=== PATIENT | male | born 1965 | race Caucasian/White ===

== ENCOUNTER 2018-11-06 10:47 | Emergency (ER) | payer OTHER ==
--- NOTE | 2018-11-06 11:05 | EDPHY ---
General Time Seen by Provider: 11/06/18 11:05 Narrative: CLINICAL IMPRESSION: Influenza A ASSESSMENT/PLAN: Patient is a 53-year-old male with a significant medical history of recurrent sinusitis who presents to the emergency department with complaints of myalgias, worsening cough, shortness of breath, decreased appetite and nausea. Patient is febrile on arrival at 38.5, he is tired appearing however not toxic-appearing. His vital signs were reviewed and no findings to suggest sepsis or serious bacterial illness. Laboratory studies were obtained including CBC, CMP and influenza with no evidence of leukocytosis, metabolic abnormality or acute kidney injury. Influenza A positive. CXR with central bronchial thickening, no evidence of focal infiltrate. History and physical examination is most consistent with influenza a. His symptoms have been ongoing for greater than 48 hr, I did not feel it of benefit for him to initiate Tamiflu. There is no evidence of significant sepsis, significant sinusitis, meningitis, pneumonia or serious bacterial illness. The patient was given IV fluids, Tylenol, Toradol, albuterol nebulizer and prednisone with significant improvement of his symptoms. The patient will continue to be treated symptomatically and is instructed to followup with PCP for reevaluation within the next 2-3 days; he will additionally continue Medrol Dosepak and albuterol as needed for his cough. On re-examination and prior to discharge this patient is stable and well-appearing, his abdomen is soft and non -tender, there is no petechial rash and his neck supple. His lungs were clear, his oxygen saturation was 96% on room air without evidence of hypoxia or respiratory distress. The patient is well established with PCP, we discussed the importance of close follow-up. Strict return precautions discussed-he will return for significantly worsening symptoms, high fevers, neck stiffness, difficulty swallowing, chest pain, shortness of breath, signs of dehydration or for any other concerning symptom. The patient verbalizes understanding and he is in agreement with this plan. DIFFERENTIAL DX: Adult fever including but not limited to viral syndromes including influenza, meningitis, urinary tract infection, pneumonia and sepsis. ED COURSE: 1140: Chest x-ray findings suggestive of central bronchitis, no evidence of focal consolidation. 1208: ECG reviewed by myself revealed normal sinus rhythm with a rate of 77. No evidence of acute ischemia. 1300: Case discussed with Dr. Jack. 1325: On repeat examination the patient is well-appearing, he states he is feeling so much better. His vital signs remain stable however he still has a temperature of 38.2 degrees, will give Toradol and re-evaluate. CHIEF COMPLAINT: Myalgias, cough, shortness of breath, decreased appetite and nausea HPI: Patient is a 53-year-old male with a history of intermittent sinusitis who presents to the emergency department with complaints of congestion, severe cough , myalgias, shortness of breath, decreased appetite and nausea. Patient reports 1 month prior he was experiencing symptoms of congestion, sinus tenderness and cough similar to episodes of sinusitis that he has had in the past. He was seen and evaluated by his primary care provider Dr. Elena, was placed on Z-Nikhil, cough suppressant and intranasal sinus medication with improvement however never complete resolution of his symptoms. Patient traveled for work this week to [place], on the 2nd day of his trip he is symptoms significantly worsening where his cough became much more severe, he describes a whistling sound when he breathes as well as chills, sweats, shortness of breath, decreased appetite and nausea. Patient returned last evening from his travels, woke up today feeling even worse. Patient denies any earache or sore throat, he has had constant runny nose and congestion, denies any significant sinus tenderness. He does develop headaches when his coughing is most severe, denies any headache today also denies any neck stiffness. He has pain in his central chest only when he coughs, denies any chest pain at rest. He feels that he is not able to take a deep breath, when he tries to take a deep breath it causes him to cough uncontrollably. He has had nausea, denies any vomiting or abdominal pain. He denies any urinary symptoms to include dysuria, hematuria or frequency. Bowel movements have been normal and regular. PMH: Intermittent sinusitis Pertinent Past Surgical History: Rhinoplasty Family History: Not contributory Social History: Occasional cigarette smoker, occasional marijuana, occasional drinker REVIEW OF SYSTEMS: All other systems negative Constitutional: Chills, sweats, decreased appetite. Eyes: No discharge, vision change ENT: Congestion, rhinorrhea. Cardiovascular: Chest pain with cough, denies chest pain at rest or palpitations. Respiratory: Cough and shortness of breath. Gastrointestinal: Nausea. No abdominal pain, no vomiting, diarrhea. Genitourinary: No hematuria, dysuria, flank pain, pelvic pain. Musculoskeletal: Myalgias. No back pain, joint swelling, joint pain. Skin: No rashes, color change. Neurological: No headache, dizziness, weakness. PHYSICAL EXAM: General Appearance: Alert, patient is tired appearing however not toxic- appearing. HENT: Normocephalic, atraumatic. Bilateral external ears are normal. Bilateral tympanic membranes are normal with pearly guardado reflex. Nares are clear, mucosa is pink and non friable. There is no appreciable sinus tenderness to palpation. Oropharynx is clear, mucosa is mildly dry, uvula is midline. There is no tonsillar enlargement or exudate. The dentition is normal. Eyes: PERRLA, no acute vision change, nystagmus, swelling, discharge, pain or photosensitivity. Conjunctiva pink, no pallor or injection. Neck: Supple, nontender, no lymphadenopathy, no midline pain, FROM, no meningismus. Respiratory: Patient with shallow respirations, no tachypnea. Breath sounds are diminished diffusely with faint wheeze. Cardiac: Regular rate and rhythm, no murmurs or gallops. Gastrointestinal: Abdomen is soft, nontender, bowel sounds normal, no masses/ hernia, no rigidity, guarding or focal peritoneal findings. Neurological: Alert and oriented x 3, CN 2-12 grossly intact, normal gait no ataxia, DTR's intact, normal sensation and strength Skin: Warm, dry, no rashes, no nodules on palpation. Musculoskeletal: Extremities are symmetrical, full range of motion, no tenderness, deformity, swelling, or erythema. Psychiatric: Patient is oriented X 3, there is no agitation. MEDICAL DECISION MAKING: Patient was seen independently. Secondary supervising physician at time of evaluation was Dr. Jack. Diagnosis: URI, cough. New, requires workup Summary: See Assessment and Plan for summary of ED visit Clinical lab tests: ordered / reviewed. Independent visualization of images, tracing, or specimens: Yes. Decision to obtain medical records or history from someone other than the patient: No Review / Summarize previous medical records: Yes Discussed patient with another provider: Yes, Dr. Jack Patient Progress: Stable, discharge. - Diagnostics Imaging Results: Imaging Impressions Chest X-Ray 11/06/18 11:15 Impression: Central bronchitis; otherwise negative chest. - History Smoking Status: Light smoker - Objective Vital Signs: Initial Vital Signs Temperature (C) 38.5 C H 11/06/18 10:50 Heart Rate 72 11/06/18 10:50 Respiratory Rate 18 11/06/18 10:50 Blood Pressure 128/81 H 11/06/18 10:50 O2 Sat (%) 94 11/06/18 10:50 O2 Delivery Mode Nasal Cannula O2 (L/minute) 0.5 Allergies/Adverse Reactions: No Known Allergies Allergy (Verified 11/06/18 10:48) Home Medications: Medication Instructions Recorded Albuterol [Proventil Inhaler HFA 1 - 2 puffs IH Q4H #1 mdi 11/06/18 (*)] Wellbutrin 100mg (*) 11/06/18 methylPREDNISolone [Medrol Dose 1 each PO AD #1 ea 11/06/18 Nikhil] Laboratory Results: Laboratory Results 11/06/18 11:40 11/06/18 11:40 11/06/18 11/06/18 11/06/18 11:40 11:40 11:40 WBC 4.04 10^3/uL 10^3/uL (3.80-9.50) RBC 4.57 10^6/uL 10^6/uL (4.40-6.38) Hgb 14.8 g/dL g/dL (13.7-17.5) Hct 44.1 % % (40.0-51.0) MCV 96.5 fL fL (81.5-99.8) MCH 32.4 pg pg (27.9-34.1) MCHC 33.6 g/dL g/dL (32.4-36.7) RDW 12.5 % % (11.5-15.2) Plt Count 166 10^3/uL 10^3/uL (150-400) MPV 10.5 fL fL (8.7-11.7) Neut % (Auto) Not Reported Lymph % (Auto) Not Reported [place] % (Auto) Not Reported Eos % (Auto) Not Reported Baso % (Auto) Not Reported Nucleat RBC Rel Count Not Reported Absolute Neuts (auto) Not Reported Absolute Lymphs (auto) Not Reported Absolute Monos (auto) Not Reported Absolute Eos (auto) Not Reported Absolute Basos (auto) Not Reported Absolute Nucleated RBC Not Reported Immature Gran % Not Reported Seg Neutrophils % 72.0 % % Band Neutrophils % 7.0 % % Lymphocytes % 11.0 % % Monocytes % 10.0 % % Eosinophils % 0.0 % % Basophils % 0.0 % % Metamyelocytes % 0.0 % % Myelocytes % 0.0 % % Promyelocytes % 0.0 % % Blast Cells % 0.0 % % Immature Gran # Not Reported Absolute Seg Neuts 2.91 10^3/uL 10^3/uL (1.70-6.50) Absolute Band Neuts 0.28 10^3/uL 10^3/uL (0.00-0.70) Absolute Lymphocytes 0.44 10^3/uL L 10^3/uL (1.00-3.00) Absolute Monocytes 0.40 10^3/uL 10^3/uL (0.30-0.80) Absolute Eosinophils 0.00 10^3/uL L 10^3/uL (0.03-0.40) Absolute Basophils 0.00 10^3/uL L 10^3/uL (0.02-0.10) Absolute Metamyelocyte 0.00 10^3/mL 10^3/mL (0.00-0.00) Absolute Myelocytes 0.00 10^3/mL 10^3/mL (0.00-0.00) Absolute Promyelocytes 0.00 10^3/uL 10^3/uL (0.00-0.00) Absolute Plasma Cells 0.00 10^3/uL 10^3/uL (0.00-0.00) Nucleated RBCs 0 /100 WBC /100 WBC (0-0) Absolute Blast Cells 0.00 10^3/uL 10^3/uL (0.00-0.00) Plasma Cells % 0.0 % % Platelet Estimate ADEQUATE (ADEQ) Sodium 136 mEq/L mEq/L (135-145) Potassium 4.5 mEq/L mEq/L (3.5-5.2) Chloride 102 mEq/L mEq/L (97-110) Carbon Dioxide 25 mEq/l mEq/l (22-31) Anion Gap 9 mEq/L mEq/L (6-14) BUN 11 mg/dL mg/dL (7-23) Creatinine 0.9 mg/dL mg/dL (0.7-1.3) Estimated GFR > 60 Glucose 96 mg/dL mg/dL (70-100) Calcium 9.2 mg/dL mg/dL (8.5-10.4) Total Bilirubin 0.5 mg/dL mg/dL (0.1-1.4) AST 42 IU/L IU/L (17-59) ALT 37 IU/L IU/L (21-72) Alkaline Phosphatase 43 IU/L IU/L (38-126) Total Protein 6.8 g/dL g/dL (6.3-8.2) Albumin 4.1 g/dL g/dL (3.5-5.0) Nasal Influenza A PCR FLU A DETECTED H (NEGATIVE) Nasal Influenza B PCR NEGATIVE FOR FLU B (NEGATIVE) Medications Given: Discontinued Medications Acetaminophen (Tylenol) 1,000 mg PO EDNOW ONE Stop: 11/06/18 11:17 Last Admin: 11/06/18 11:42 Dose: 1,000 mg Albuterol (Proventil Neb) 3 ml IH EDNOW ONE Stop: 11/06/18 11:17 Last Admin: 11/06/18 11:41 Dose: 3 ml Hydromorphone HCl (Dilaudid) 0.5 mg IVP EDNOW ONE Stop: 11/06/18 11:18 Last Admin: 11/06/18 11:42 Dose: 0.5 mg Sodium Chloride (Ns) 1,000 mls @ 0 mls/hr IV ONCE ONE PRN Reason: Wide Open Stop: 11/06/18 11:18 Last Admin: 11/06/18 11:41 Dose: 1,000 mls Sodium Chloride (Ns) 1,000 mls @ 0 mls/hr IV ONCE ONE PRN Reason: Wide Open Stop: 11/06/18 13:37 Last Admin: 11/06/18 14:02 Dose: 1,000 mls Ketorolac Tromethamine (Toradol) 30 mg IVP EDNOW ONE Stop: 11/06/18 13:36 Last Admin: 11/06/18 14:03 Dose: 30 mg Ondansetron HCl (Zofran) 4 mg IVP Q4 PRN PRN Reason: Nausea/Vomiting, Can't Take PO Stop: 05/05/19 11:15 Last Admin: 11/06/18 11:41 Dose: 4 mg Prednisone (Prednisone) 60 mg PO EDNOW ONE Stop: 11/06/18 13:52 Last Admin: 11/06/18 14:03 Dose: 60 mg Departure - Departure Disposition: Home, Routine, Self-Care Clinical Impression: Influenza A Condition: Good Instructions: Influenza (ED) Additional Instructions: DISCHARGE INSTRUCTIONS FROM YOUR DOCTOR Thank you for visiting our emergency department today. Please keep in mind that discharge from the emergency department does not mean that there is nothing wrong - it simply means that we have not identified an emergency condition that requires further evaluation or treatment in the hospital. You should always plan to follow up with primary care for re-evaluation of your condition in the next 2-3 days. Continue Medrol Dosepak for the next 5 days. Albuterol inhaler as needed. Rest, push non-diuretic, non-caffeinated fluids, consume a healthy diet, all to help support your immune system fight infection. Consider running a coolmist humidifier in the bedroom. Consider warm salt water gargles for sore throat. Consider over the counter saline nasal washes ie: Neilmed sinus rinse, [place] or [place]. Consider over the counter Mucinex for congestion and/or cough as directed. For pain control: You may take Tylenol, I recommend 500-1000 mg every 6-8 hours as needed. Take with food and a full glass of water. Stop taking if this is upsetting her stomach. Do not exceed 4000 mg in a 24 hr period. You may also take ibuprofen, recommend 400 mg every 6 hr. Take with food and a full glass of water. Stop taking if this upsets her stomach. Do not exceed 2400 mg in a 24 hr period. Do not take any of these medications for at least 8 hr as he received Toradol in the emergency department. As discussed, in the setting of a viral illness, you may develop a secondary bacterial infection, requiring an antibiotic. Watch for new or changing symptoms ie: new ear pain or drainage, increasing cough, shortness of breath, high fever, or any other concerning symptoms. Schedule a follow-up appointment with your primary care physician in the next 2- 3 days for re-evaluation, sooner for any new concerns. Return for high fever, shaking chills, severe headache, facial redness or swelling, drainage from your ears, difficulty breathing or swallowing, throat tightness, drooling, change in voice, inability to open your mouth normally, severe neck pain, neck stiffness, shortness of breath, wheezing, noisy breathing , coughing up blood, chest pain, vomiting, diarrhea, bloody stools, decreased urine output or other concerns for dehydration, bloody urine, rash, dizziness, weakness, fainting, or for any other new, worsening or worrisome symptoms. People present with illnesses and injuries in different ways, and it is always possible that we have missed something. You may always return for re-evaluation if symptoms worsen or if they are not improving or if you develop new/different symptoms. Again, thank you for choosing our emergency department. We hope that you feel better. Referrals: HILDA ELENA [Primary Care Provider] - 2-3 days without fail Prescriptions: Albuterol [Proventil Inhaler HFA (*)] 1 - 2 puffs IH Q4H #1 mdi methylPREDNISolone [Medrol Dose Nikhil] 1 each PO AD #1 ea
[2018-11-06] MEDS ORDERED: ACETAMINOPHEN 500 MG TAB PO ONE (11:16)
[2018-11-06] MEDS ORDERED: ALBUTEROL 3 ML DEYVIAL IH ONE (11:16)
[2018-11-06] MEDS ORDERED: ONDANSETRON 4 MG/2 ML VIAL IVP PRN (11:16)
[2018-11-06] MEDS ORDERED: HYDROmorphONE/DILAUDID 2 MG/ML INJ IVP ONE (11:17)
[2018-11-06] MEDS ORDERED: NS 1,000 ML IV ONE ×2 (11:17→13:36)
[2018-11-06] MEDS ORDERED: HYDROmorphONE/DILAUDID 1 MG/ML INJ ONE (11:27)
[2018-11-06 12:11] LABS: PLATELET COUNT 166 10^3/uL (150-400)
[2018-11-06] MEDS ORDERED: KETOROLAC 30 MG/1 ML SDV IVP ONE (13:35)
[2018-11-06] MEDS ORDERED: predniSONE 20 MG TAB PO ONE (13:51)
[2018-11-06 14:43] VITALS: BP 125/72
--- NOTE | 2018-11-07 12:42 | CPEKG ---
Test Reason : OPEN Blood Pressure : / mmHG Vent. Rate : 077 BPM Atrial Rate : 077 BPM P-R Int : 150 ms QRS Dur : 097 ms QT Int : 368 ms P-R-T Axes : 031 010 017 degrees QTc Int : 417 ms Sinus rhythm Confirmed by Greg Jack ([id number]) on 11/07/2018 12:41:22 PM Referred By: Greg Jack Confirmed By:Greg Jack
== END 2018-11-06 14:49 | disposition home or self-care (01) ==
DX: J10.1 Influenza due to other identified influenza virus with other respiratory manifestations (principal); J40 Bronchitis, not specified as acute or chronic; R11.0 Nausea; F17.200 Nicotine dependence, unspecified, uncomplicated
CPT/HCPCS: 96374; J1170; J1885; J2405; J7512; J7613